=== PATIENT | male | born 1955 | race Caucasian/White ===

== ENCOUNTER 2020-08-19 07:12 | Emergency (ER) | payer MEDICARE, SELFPAY ==
[2020-08-19 07:21] LABS: Glucose Point of Care 146 (65-105)
[2020-08-19 07:36] LABS: Basophils Percent Auto 0.1 % (0.2-1.2); Eosinophils Percent Auto 0.3 % (0-4.4); Immature Granulocyte Absolute 0.83 K/mm3 (0.00-0.031); Immature Platelet Fraction Pct 3.2 % (0.9-11.2); Lymphocytes Absolute Auto 5.74 K/mm3 (0.9-3.2); Lymphocytes Percent Auto 48.5 % (18.3-44.2); Mean Corpuscular HGB Conc 28.8 g/dl (32-36); Mean Corpuscular Hemoglobin 30.5 pg (26-34); Mean Corpuscular Volume 105.9 fl (80-100); Mean Platelet Volume 10.8 fl (7.4-10.4); Monocytes Absolute Auto 2.1 K/mm3 (0.1-0.6); Neutrophils Absolute Auto 3.1 K/mm3 (1.3-6.7); Neutrophils Percent Auto 26.1 % (45.5-73.1); Nucleated Red Blood Cells Absolute Auto 0.4 K/mm3 (0.0-0.012); Platelet Count Result 124 k/mm3 (150-375); Red Blood Count 1.18 M/mm3 (4.6-6.20); Red Cell Distribution Width 15.4 % (11.5-14.5); White Blood Count 11.8 K/mm3 (4.5-10.0)
--- NOTE | 2020-08-19 07:38 | ED.CPR ---
HPI - CPR General Chief Complaint: Cardiac Arrest/CPR Stated Complaint: unresponsive Time Seen by Provider: 08/19/20 07:37 Source: family and EMS Mode of arrival: EMS Limitations: clinical condition History of Present Illness HPI narrative: This patient is a 65 year old male with history of cardiac disease, CABG, prostate CA who presents from home in cardiac arrest. EMS reports his reports patient was having difficulty breathing last night. She states she was afraid he was going into congestive heart failure. She found him at 630 am not breathing so she called 911. EMS started CPR on arrival and they report patient was in asystole. He was intubated with kingtube. They were able to give patient 4 rounds of epi, and they report his last rhythm was PEA. On arrival patient is still in PEA. MD complaint: found unresponsive Related Data Home Medications Medication Instructions Recorded Confirmed aspirin 81 mg tablet,delayed 81 mg PO DAILY 02/11/20 release rosuvastatin 20 mg tablet 20 mg PO DAILY 02/11/20 metoprolol succinate 50 mg 25 mg PO DAILY tablet 08/11/20 tablet,extended release 24 hr tamsulosin 0.4 mg capsule 0.4 mg PO DAILY 08/11/20 Allergies Allergy/AdvReac Type Severity Reaction Status Date / Time No Known Allergies Allergy Unknown Verified 08/19/20 10:33 Review of Systems Review of Systems: ROS unobtainable: Yes unobtainable due to endotracheal tube (cardiac arrest) and unobtainable due to medical condition PMFSH Past Medical History Medical History (Updated 08/19/20 @ 10:33 by Amber Griggs) Abscess Benign positional vertigo BMI 26.0-26.9,adult BPH without obstruction/lower urinary tract symptoms CAD (coronary artery disease) CHF (congestive heart failure) Colon cancer screening Colon polyposis Coronary artery disease Degenerative joint disease (DJD) of lumbar spine Elevated PSA Hyperlipidemia jail (current) use of antithrombotics/antiplatelets Microscopic hematuria Primary hypertension Prostate CA Prostate cancer screening Right kidney mass Surgical History Surgical History (Updated 08/19/20 @ 10:33 by Amber Griggs) History of three vessel coronary artery bypass Hx of CABG Hx of heart bypass surgery Family History Family History (System 08/19/20 @ 10:33 by Amber Griggs) Mother Cerebrovascular accident Father Acute myocardial infarction Social History Social History (System 11/20/20 @ 10:33 by Amber Griggs) Smoking status: Never smoker Alcohol intake: current Substance use: never Exam Const: General: ill appearing acutely Other: intubated pale HENMT: Head: normocephalic Mouth: Yes other (dark substance in airway) Eyes: Periorbital: periorbital findings abnormal left periorbital swelling Pupils: Fixed pupils bilaterally Resp: Other: intubated Cardio: Other: pulseless, PEA GI: GI Palp: Yes Soft to palpation and No Firmness to palpation present (GI) Skin: General skin exam: pallor Neuro: Other: no movement Course Reevaluation(s) Reevaluation #1: [employer] states patient's reports patient did not want anything done. I spoke with patient's and informed her of patient's . She states patient was feeling fine yesterday but started having trouble breathing last night. She states his metoprolol was decreased due to recent low blood pressures. TIme of 7:26am Date: 08/19/20 Time: 07:45 Consultations Consultation #1: I spoke with Dr. Gibson sherman o agrees to sign certificate Date: 08/19/20 Time: 08:30 Procedures Intubation Intubation #1: Intubation Date: 08/19/20 Intubation Time: 07:15 sedative: none Laryngoscope: fiber optic video scope Tube Size (cm): 7.5 Method of Intubation: orotracheal Number of Attempts: 1 Tube Secured Depth (cm): 25 Tube Secured Location: lips Tube
[2020-08-19 07:40] LABS: INR 2.2; Prothrombin Time 25.4 Seconds (11.1-14.7)
[2020-08-19 07:41] LABS: Partial Thromboplastin Time 61.8 SECONDS (22.3-36.8)
[2020-08-19 07:44] LABS: Hematocrit 12.5 % (42.0-52.0); Hemoglobin 3.6 g/dL (14.0-18.0)
[2020-08-19 07:45] LABS: Hypochromasia 1+ (NORMAL); Platelet Estimate Adequate (Adequate)
[2020-08-19 08:00] LABS: Alanine Aminotransferase 44 U/L (4-50); Albumin Level 2.2 g/dL (3.5-5.1); Alkaline Phosphatase 50 U/L (38-126); Anion Gap 25 mmol/L (8-16); Aspartate Amino Transferase 114 U/L (17-59); Bilirubin,Total 0.6 mg/dL (0.2-1.3); Blood Urea Nitrogen 69 mg/dL (9-20); Calcium 8.4 mg/dL (8.4-10.2); Carbon Dioxide 7 mmol/L (22-30); Chloride 100 mmol/L (98-107); Estimated CRCL calculation 21 ml/min; Estimated Glomerular Filt Rate 17; Glucose 181 mg/dL (75-110); Potassium 6.9 mmol/L (3.4-5.0); Sodium 132 mmol/L (137-145); Troponin I 0.075 ng/mL (0.000-0.034)
--- NOTE | 2020-08-19 08:00 | PC.NURSE ---
0705 CODE BLUE CALLED Per EMS pt was found around 0630 unresponsive and not breathing. EMS was called and CPR was started Pt arrived to ED in cardiac arrest and CPR in progress, prior to arrival pt was given 4-5 rounds of EPI given. 0710 pt arrived and pulse check was done pt was in PEA 0711 EPI was given 0712 IV 18 L AC was placed 0715 EPI given 0715 Tube placed 25 at teeth 716 pulse check no pulse compressions continue 0717 Sodium Bi Carb given 0717 blood sugar 146 0719 EPI given 0721 Pulse check, no pulse compressions continued 0723 Ultra sound used, no pulse compressions continued 0725 No pulse PEA 0726 Time of
[2020-08-19 08:02] LABS: Lactic Acid Reflex 16.5 mmol/L (0.7-2.1)
[2020-08-19 10:25] LABS: Reflex Lactic Acid Yes or No Add Lactic
== END 2020-08-19 10:05 | disposition expired ==
PROVIDERS: Emergency Provider General Practice
DX: I46.9 Cardiac arrest, cause unspecified (principal); I25.10 Atherosclerotic heart disease of native coronary artery without angina pectoris; N40.0 Benign prostatic hyperplasia without lower urinary tract symptoms; I11.0 Hypertensive heart disease with heart failure; I50.9 Heart failure, unspecified; Z86.010 Personal history of colon polyps; M47.816 Spondylosis without myelopathy or radiculopathy, lumbar region; E78.5 Hyperlipidemia, unspecified; Z95.1 Presence of aortocoronary bypass graft; Z85.46 Personal history of malignant neoplasm of prostate
CPT/HCPCS: 31500; 36415; 80053; 83605; 84484; 85025; 85055; 85610; 85730; 86140; 92950; 99285